=== PATIENT | female | born 1955 | race Caucasian/White ===

== ENCOUNTER 2017-10-24 13:22 | Outpatient (CLI) | payer OTHER | END 2017-10-24 13:58 | disposition home or self-care (01) | LOC: SONOGRAMA 13:22 | DX: E06.3 Autoimmune thyroiditis (principal); E04.1 Nontoxic single thyroid nodule ==

== ENCOUNTER 2017-11-07 11:31 | Outpatient (CLI) | payer OTHER | END 2017-11-07 11:39 | disposition home or self-care (01) | LOC: RAD 11:31 | DX: M25.562 Pain in left knee (principal) ==

== ENCOUNTER 2018-03-12 14:42 | Outpatient (CLI) | payer OTHER | END 2018-03-12 16:03 | disposition home or self-care (01) | LOC: MRI 14:42 | DX: S83.207A Unspecified tear of unspecified meniscus, current injury, left knee, initial encounter (principal) | CPT/HCPCS: 73721 ==

== ENCOUNTER 2018-07-01 14:54 | Emergency (ER) | payer OTHER ==
[~2018-07-01] VITALS: Ht 167.6 cm; Wt 88.5 kg
[2018-07-01] MEDS ORDERED: ATACAND4 MG (15:36)
[2018-07-01] MEDS ORDERED: SYNTHROID88 MCG (15:36)
== END 2018-07-01 21:24 | disposition home or self-care (01) ==
LOC: ER 14:54
DX: B34.9 Viral infection, unspecified (principal)

== ENCOUNTER 2019-09-12 10:23 | Outpatient (CLI) | payer OTHER ==
[~2019-09-12 10:23] MED LIST: ATACAND4 MG; SYNTHROID88 MCG
== END 2019-09-12 10:30 | disposition home or self-care (01) ==
LOC: RAD 10:23
DX: M79.18 Myalgia, other site (principal); M19.041 Primary osteoarthritis, right hand; M19.042 Primary osteoarthritis, left hand

== ENCOUNTER 2020-04-15 09:47 | Outpatient (CLI) | payer OTHER | END 2020-04-15 09:52 | disposition home or self-care (01) | LOC: MAMO-SONO 09:47 | PROVIDERS: ATTEND Internal Medicine | DX: N60.21 Fibroadenosis of right breast (principal); N60.22 Fibroadenosis of left breast; N64.59 Other signs and symptoms in breast ==

== ENCOUNTER 2020-08-17 09:23 | Outpatient (CLI) | payer OTHER | END 2020-08-17 09:26 | disposition home or self-care (01) | LOC: LAB 09:23 | PROVIDERS: ATTEND Internal Medicine | DX: D69.8 Other specified hemorrhagic conditions (principal); N39.0 Urinary tract infection, site not specified ==

== ENCOUNTER 2020-08-17 10:19 | Outpatient (CLI) | payer OTHER | END 2020-08-17 10:25 | disposition home or self-care (01) | LOC: SONOGRAMA 10:19 | PROVIDERS: ATTEND Obstetrics & Gynecology | DX: R10.84 Generalized abdominal pain (principal); R16.1 Splenomegaly, not elsewhere classified; D69.49 Other primary thrombocytopenia ==

== ENCOUNTER 2020-09-21 07:24 | Outpatient (CLI) | payer OTHER | END 2020-09-21 07:31 | disposition home or self-care (01) | LOC: LAB 07:24 | PROVIDERS: ATTEND Internal Medicine Hematology & Oncology | DX: D69.49 Other primary thrombocytopenia (principal); R70.0 Elevated erythrocyte sedimentation rate ==

== ENCOUNTER 2021-10-17 10:23 | Outpatient (CLI) | payer OTHER | END 2021-10-17 10:33 | disposition home or self-care (01) | LOC: MAMO-SONO 10:23 | PROVIDERS: ATTEND Internal Medicine | DX: K76.1 Chronic passive congestion of liver (principal); E78.2 Mixed hyperlipidemia; E11.9 Type 2 diabetes mellitus without complications; I10 Essential (primary) hypertension; E04.1 Nontoxic single thyroid nodule; N61.21 Granulomatous mastitis, right breast; N61.22 Granulomatous mastitis, left breast ==

== ENCOUNTER 2022-07-03 09:57 | Outpatient (CLI) | payer OTHER | END 2022-07-03 10:06 | disposition home or self-care (01) | LOC: SONOGRAMA 09:57 | DX: K76.0 Fatty (change of) liver, not elsewhere classified (principal) ==

== ENCOUNTER 2022-12-28 11:32 | Outpatient (CLI) | payer OTHER | END 2022-12-28 11:38 | disposition home or self-care (01) | LOC: SONOGRAMA 11:32 | PROVIDERS: ATTEND Internal Medicine Gastroenterology | DX: R16.0 Hepatomegaly, not elsewhere classified (principal); E04.1 Nontoxic single thyroid nodule; E89.0 Postprocedural hypothyroidism ==

== ENCOUNTER 2024-08-27 13:23 | Outpatient (CLI) | payer OTHER | END 2024-08-27 13:35 | disposition home or self-care (01) | LOC: MAMO-SONO 13:23 | PROVIDERS: ATTEND Obstetrics & Gynecology | DX: N60.21 Fibroadenosis of right breast (principal); N60.22 Fibroadenosis of left breast; Z12.31 Encounter for screening mammogram for malignant neoplasm of breast ==

== ENCOUNTER 2025-01-16 14:10 | Emergency (ER) | payer OTHER ==
[~2025-01-16] VITALS: Ht 167.6 cm; Wt 85.7 kg
[2025-01-16] MEDS ORDERED: LIPITOR40 M1 PO (14:32)
[2025-01-16] MEDS ORDERED: ROSUVASTATIN CAL5 MG PO (14:32)
[2025-01-16] MEDS ORDERED: MOUNJARO2.5 MG/0.5 SQ (14:32)
[2025-01-16] MEDS ORDERED: KETOROLAC TROMETHAMINE 30 MG VIAL IM ONE (15:30)
[2025-01-16] MEDS ORDERED: ORPHENADRINE CITRATE 30 MG/ML AMPUL IM ONE (15:30)
[2025-01-16] MEDS ORDERED: KETOROLAC TROMETHAMINE 30 MG VIAL ONE (15:52)
[2025-01-16] MEDS ORDERED: ORPHENADRINE CITRATE 30 MG/ML AMPUL ONE (15:52)
[2025-01-16] MEDS ORDERED: NORFLEX100MG PO (18:17)
[2025-01-16] MEDS ORDERED: MOBIC7.5 MG PO (18:17)
== END 2025-01-16 18:29 ==
LOC: ER 14:10
DX: G89.11 Acute pain due to trauma (principal); M25.562 Pain in left knee; I10 Essential (primary) hypertension; E11.9 Type 2 diabetes mellitus without complications; Z88.2 Allergy status to sulfonamides
CPT/HCPCS: 72100; 72170; 73562; 73610; 96372; 99283; J1885; J2360